=== PATIENT | female | born 2000 | race Hispanic/Latino ===

== ENCOUNTER 2020-03-03 13:42 | Observation (INO) | payer OTHER, SELFPAY ==
--- NOTE | 2020-03-03 13:42 | OBADM ---
This patient, Keerthi Preciado, admitted to the OB room OB Post 112 for observation. Patient/family oriented to hospital policies and general routines including ID bracelet, bed and alarms, visiting hours, pain management, procedures, bathroom and other care routines, personal items, smoking policy, room service/diet, and visiting hours. Patient/Family are encouraged to report perceived risks to care and to ask questions if they do not understand what they are told or what they should do.
[2020-03-03 15:00] VITALS: BP 119/71; PULSE 83; BMI 33.0
[2020-03-03 16:00] VITALS: TEMP 36.8
--- NOTE | 2020-03-24 13:46 | PM.OBTRLD ---
OB - Triage/Final Diagnosis Final Diagnosis (1) Amniotic fluid leaking: Code(s): O42.90 - Premature rupture of membranes, unspecified as to length of time between rupture and onset of labor, unspecified weeks of gestation Status: Acute
== END 2020-03-03 16:25 | disposition home or self-care (01) ==
PROVIDERS: Admitting Provider Obstetrics & Gynecology; Visit Provider Obstetrics & Gynecology
DX: O42.90 Premature rupture of membranes, unspecified as to length of time between rupture and onset of labor, unspecified weeks of gestation (principal); Z3A.00 Weeks of gestation of pregnancy not specified
CPT/HCPCS: G0378; G0379

== ENCOUNTER 2020-03-24 21:25 | Observation (INO) | payer OTHER, SELFPAY ==
[2020-03-24] VITALS (7 sets, daily range): BP systolic 116–136; BP diastolic 69–77; PULSE 68–80; TEMP 36.6
[2020-03-24 22:11] LABS: Add Urine Microscopic? YES; Appearance Urine Clear (Clear); Bacteria Urine Trace /hpf; Bilirubin Urine Negative (Negative); Blood Urine Negative (Negative); Color Urine Yellow (Yellow); Glucose Urine UA Negative (Negative); Ketones Urine Negative (Negative); Leukocyte Esterase Ur Negative LEU/UL (NEGATIVE); Mucus Urine Rare /lpf; Nitrate Urine Negative (Negative); Protein Urine 1+ mg/dL (Negative); RBC Urine 0-2 /hpf (0-2); Specific Grav Ur 1.027 (1.001-1.035); Squamous Epithelial Cell Urine Few /hpf (Few); Urobilinogen Urine Negative mg/dL (<2.0); WBC Urine 0-3 /hpf (0-3)
--- NOTE | 2020-03-25 02:02 | PC.NURSE ---
02/26/202139 Pt states she has abdominal cramping and back pain since last evening. Unsure if having contractions. Pt states her pain is present all of the time and rated as7. Pt appears comfortable on arrival. Denies urinary symptoms and has been having normal BM. Pt states she is having next Sunday /
[2020-03-25 02:08] VITALS: BMI 34.9
--- NOTE | 2020-03-25 02:08 | OBADM ---
This patient, Keerthi Preciado, admitted to the OB room OB Post 117 for observation. Patient/family oriented to hospital policies and general routines including ID bracelet, bed and alarms, visiting hours, pain management, procedures, bathroom and other care routines, personal items, smoking policy, room service/diet, and visiting hours. Patient/Family are encouraged to report perceived risks to care and to ask questions if they do not understand what they are told or what they should do.
--- NOTE | 2020-04-23 14:02 | P.PNOB_ITS ---
OB - Triage/Final Diagnosis Evaluation Laboratory results: Laboratory Tests 03/24/20 22:01 Urine Color Yellow Urine Appearance Clear Urine pH 6.0 Ur Specific [place] 1.027 Urine Protein 1+ H Urine Glucose (UA) Negative Urine Ketones Negative Ur Blood (Man) Negative Urine Nitrate Negative Urine Bilirubin Negative Urine Urobilinogen Negative Ur Leukocyte Esterase Negative Urine RBC 0-2 Urine WBC 0-3 Ur Squamous Epith Cells Few Urine Bacteria Trace Urine Mucus Rare Final Diagnosis (1) False labor: Code(s): O47.9 - False labor, unspecified Status: Acute
== END 2020-03-24 23:30 | disposition home or self-care (01) ==
PROVIDERS: Admitting Provider Obstetrics & Gynecology; Visit Provider Obstetrics & Gynecology
DX: O47.9 False labor, unspecified (principal); Z3A.00 Weeks of gestation of pregnancy not specified
CPT/HCPCS: 81001; 87086; G0378; G0379

== ENCOUNTER 2020-03-27 11:03 | Outpatient (CLI) | payer OTHER, SELFPAY ==
[2020-03-27 11:42] LABS: Hematocrit 28.1 % (37.0-47.0); Hemoglobin 8.3 g/dL (12.0-15.0); Mean Corpuscular HGB Conc 29.5 g/dl (32-36); Mean Corpuscular Hemoglobin 21.2 pg (26-34); Mean Corpuscular Volume 71.9 fl (80-100); Mean Platelet Volume 10.7 fl (7.4-10.4); Platelet Count Result 314 k/mm3 (150-375); Red Blood Count 3.91 M/mm3 (4.2-5.4); Red Cell Distribution Width 18.8 % (11.5-14.5); White Blood Count 8.7 K/mm3 (4.5-10.0)
[2020-03-29 06:52] LABS: Rapid Plasma Reagin Non-Reactive (NonReactive)
== END 2020-03-27 11:04 | disposition home or self-care (01) ==
LOC: ANHLAB 11:05
PROVIDERS: Visit Provider Obstetrics & Gynecology
DX: Z01.818 Encounter for other preprocedural examination (principal)
CPT/HCPCS: 36415; 85027; 86592; 86850; 86900; 86901

== ENCOUNTER 2020-03-29 05:30 | Inpatient (IN) | payer OTHER, SELFPAY ==
--- NOTE | 2020-03-28 10:03 | WPDANESEPP ---
Anes - Eval Pre Procedure Procedure: Operation Date: 03/29/20 07:30 Proposed Procedures p Repeat Section - Isma Guardado MD Date/Time: 03/28/20 10:03 Pre Op Diagnosis: Pre-admit, routine care, prev csection Patient Data Age: 20 Gender: F Height: Weight: Allergies Allergy/AdvReac Type Severity Reaction Status Date / Time almond Allergy Unknown Hives / Verified 05/25/18 13:27 Red Face Home Medications Medication Instructions Recorded Confirmed Type PNV cmb#95-ferrous fumarate-FA 1 tablet PO DAILY 03/04/20 03/24/20 History [] Patient hx anesthesia problems: none Family hx anesthesia problems: none PMFSH Past Medical History Medical History Depression Hypothyroid Iron deficiency anemia Surgical History Surgical History Hx of tonsillectomy Family History Family History Father Hypertension Mother Anemia Social History Social History Substance use: never Gender identity (if verbalized by the patient): Female Spiritual care concerns: No Exam Day of Procedure 03/28/20 10:03
[2020-03-29] VITALS (55 sets, daily range): BP systolic 101–136; BP diastolic 57–85; PULSE 54–78; RESP 12–18; TEMP 36.2–37.2; O2SAT 99–100; BMI 34.8
--- NOTE | 2020-03-29 05:30 | LDADM ---
This patient, Keerthi Preciado, was admitted to Labor/Delivery/Recovery 120 on 03/29/20 at 05:30. Plans for labor, pain management and were discussed with patient. Patient/family oriented to hospital policies and general routines including ID bracelet, bed and alarms, visiting hours, pain management, procedures, bathroom and other care routines, personal items, smoking policy, room service/diet and guest tray routines, security routines, and visiting hours. Patient/Family are encouraged to report perceived risks to care and to ask questions if they do not understand what they are told or what they should do. See OBIX for further documentation.
[2020-03-29] MEDS: LACTATED RINGERS 1,000 ML 125 ML IV CONT ×2 (06:26→06:55)
--- NOTE | 2020-03-29 06:49 | WPDANESEPPF ---
Anes - Initial Pre Proc Eval Procedure: Operation Date: 03/29/20 07:30 Proposed Procedures p Repeat Section - Isma Guardado MD Date/Time: 03/29/20 06:49 Surgeon: Isma Guardado MD Pre Op Diagnosis: C/S Patient Data Age: 20 Gender: F Height: 5 ft 9 in Weight: 107 kg Last Vital Signs Pulse 78 03/29/20 06:15 BP 130/85 03/29/20 06:15 Allergies Allergy/AdvReac Type Severity Reaction Status Date / Time almond Allergy Unknown Hives / Verified 05/25/18 13:27 Red Face Home Medications Medication Instructions Recorded Confirmed Type PNV cmb#95-ferrous fumarate-FA 1 tablet PO DAILY 03/04/20 03/24/20 History [] Patient hx anesthesia problems: none Family hx anesthesia problems: none PMFSH Past Medical History Medical History Depression Hypothyroid Iron deficiency anemia Surgical History Surgical History (Updated 03/29/20 @ 06:49 by Yinka Gallo MD) History of section Hx of tonsillectomy Family History Family History Father Hypertension Mother Anemia Social History Social History Smoking status: Never smoker Second hand tobacco smoke exposure: No Substance use: never Gender identity (if verbalized by the patient): Female Spiritual care concerns: No Anes - Eval Final PreProcedure Day of Procedure 03/29/20 06:49 Patient weight: obese Heart: regular rate and rhythm Lungs: clear to auscultation Airway: Mallampati scale class II Neurological: alert and oriented Last oral intake: >/= 8 hours ASA classification: II Emergent: no Anesthetic plan: proceed Anesthesia type and monitoring: regional spinal and standard monitoring Informed Consent: The patient's anesthetic plan and its attendant risks and benefits were discussed with the patient/family/POA. Questions were solicited and answers provided to the satisfaction of the patient/family/POA.
--- NOTE | 2020-03-29 07:20 | PM.IMHP ---
H&P: HPI History of Present Illness Date/Time: 03/29/20 07:20 Chief complaint: C/S Narrative: Keerthi Preciado is a 20 year old female Multiparous female at 39 weeks gestation who presents for repeat delivery. She has a previous delivery. She has no complaints. She denies any contractions, loss of vision, vaginal bleeding. She denies any chest pain, shortness of breath. She denies any nausea, vomiting, fever, chills. Review of Systems Constitutional: Constitutional: Reports no additional constitutional complaints, Denies fatigue, Denies headache(s), Denies lethargy and Denies weakness Eyes: Eyes: Reports no additional eye complaints, Denies blurry vision and Denies photophobia ENT: Reports as per HPI, Denies headache(s) and Denies neck pain Cardiovascular: Cardiovascular: Denies chest pain, Denies diaphoresis, Denies leg edema, Denies palpitations and Denies dyspnea Respiratory: Respiratory: Denies hemoptysis, Denies dyspnea and Denies wheezing Gastrointestinal: Gastrointestinal: Denies abdominal pain, Denies melena, Denies bloating, Denies hematochezia, Denies nausea and Denies vomiting Genitourinary: Genitourinary: Reports no additional female genitourinary complaints Musculoskeletal: Musculoskeletal: Denies joint swelling, Denies neck pain, Denies numbness and Denies stiffness Neurologic: Denies Abnormal speech present, Denies confusion, Denies headache(s), Denies numbness and Denies weakness Psychiatric: Psychiatric: Denies anxiety, Denies confusion, Denies depression, Denies homicidal ideation and Denies suicidal ideation Endocrine: Endocrine: Denies fatigue and Denies palpitations Allergic/Immunologic: Allergic/Immunologic: Denies wheezing PMFSH Past Medical History Medical History (Updated 03/29/20 @ 07:22 by Isma Guardado MD) Depression Hypothyroid Iron deficiency anemia Surgical History Surgical History (Updated 03/29/20 @ 07:22 by Isma Guardado MD) History of section Hx of tonsillectomy Family History Family History Father Hypertension Mother Anemia Social History Social History Smoking status: Never smoker Second hand tobacco smoke exposure: No Substance use: never Gender identity (if verbalized by the patient): Female Spiritual care concerns: No Meds Home Medications and Allergies Home Medications Medication Instructions Recorded Confirmed Type PNV cmb#95-ferrous fumarate-FA 1 tablet PO DAILY 03/04/20 03/24/20 History [] Allergies Allergy/AdvReac Type Severity Reaction Status Date / Time almond Allergy Unknown Hives / Verified 05/25/18 13:27 Red Face Vital Signs Vital Signs - 24 hr 03/29/20 06:12 03/29/20 06:15 Pulse Rate 70 78 Blood Pressure 127/73 130/85 Exam Const: General: healthy appearing, comfortable and no acute distress; No confusion Orientation/consciousness: No confusion Eyes: Direct Ophthalmoscopy: No photophobia Resp: Auscultation: clear to auscultation bilaterally, no rales, no rhonchi and no wheezes Cardio: Rate: regular rate Heart sounds: no click, no murmurs and no rubs GI: Inspection: non-distended GI Palp: No abdominal tenderness Auscultation: normal bowel sounds Neuro: General: No confusion Speech: No Abnormal speech present Extrem: General: normal to inspection, no pedal edema and no calf tenderness Assessment and Plan Assessment and plan (1) Previous delivery, delivered: Code(s): O34.219 - Maternal care for unspecified type scar from previous delivery Status: Acute (2) Term : Code(s): Z34.90 - Encounter for supervision of normal , unspecified, unspecified trimester Status: Acute Assessment and Plan: this patient is a 20-year-old multiparous female with a previous delivery at
[2020-03-29] MEDS: ceFAZolin 2 GM/D5W 50 ML 2 GM/50 ML BAG IVPB (07:52)
--- NOTE | 2020-03-29 08:54 | PM.PROC ---
Procedure Note - Detailed Date of procedure: 03/29/20 Pre-op diagnosis: C/S Term gestation, PRevious LTCS Post-op diagnosis: same Procedure performed: low-transverse delivery Description of procedure: The patient was taken the operating room. She was prepped and draped in the dorsal supine position with leftward tilt after induction of spinal anesthetic. When anesthesia was found to be adequate a low-transverse skin incision was made and carried down to the level the fascia with the knife. The fascial incision was made at the midline with a scalpel. The fascial incision was extended laterally with Milan scissors. The fascia was tented upward superior and inferior with Paul clamps. The rectus muscles were dissected off bluntly. The rectus muscles at the midline. The preperitoneal fat was dissected bluntly at the superior aspect of the separate the rectus muscles. The peritoneal cavity was entered bluntly in the same area. The peritoneal incision was extended superior and inferior with good visualization of bladder. Bladder blade was inserted. A low-transverse incision was made on the uterus with the scalpel. It was carried down the level of the amniotic cavity with a knife. The amniotic cavity bluntly. The uterine incision was made laterally with blunt traction. The was delivered. The cord was clamped and cut. The was handed off to waiting pediatric staff. Cord bloods were obtained. The placenta was removed manually. The uterus was exteriorized. Uterus cleared of all clots and debris. Uterus closed in 0 Vicryl in a running locked fashion. An imbricating layer of 0 Vicryl was also placed on the to bolster the closure. The uterus was returned to the abdomen. The gutters were cleared of all clots and debris. The fascia was closed 0 Vicryl in a running fashion. Subcutaneous tissue was irrigated and bleeding areas were cauterized. The skin was closed with subcuticular 4O monocryl. The incision was covered with derma leach. The patient tolerated the procedure well. She was taken recovery room stable condition. Sponge, lap, needle counts were correct x2. Anesthesia: spinal Surgeon: Isma Guardado MD Estimated blood loss (mL): 240 Drains: No Packing: No Pathology: none sent Complications: No immediate complications Condition: stable Disposition: floor Findings: Normal maternal anatomy. Average size infant with normal Apgars.
[2020-03-29] MEDS: OXYTOCIN 30 UNITS/NS 500 ML 30 UNITS/500 ML BAG 125 UNITS IV CONT (09:30)
--- NOTE | 2020-03-29 12:40 | PC.NURSE ---
Consulted with patient, mother reports this to be 2nd child to breastfeed, reporting infant has been easily awoken to feed without issue. Reviewed infant feeding cues, frequencies, duration of feedings, feeding elimination flow sheet, and signs of adequate intake. Mother states it is time to feed, infant is sleepy at this time. Demonstrated stimulation techniques to wake for feeding. Assisted with infant to breast. Reviewed positioning/alignment in cross cradle, holding breast in U hold and guided asymmetrical latch on. was able to latch correctly. Infant nursed eagerly, with steady draws and frequent swallowing noted. Reviewed signs of a correct latch, effective nursing and suck swallow ratio. Infant was able to maintain latch without discomfort to mother. Nipple care reviewed. suggested to stimulate infant while feeding to keep infant awake and nursing effectively for increased intake and to assist with maintaining deep latch. Demonstrated how to adjust latch more deeply while feeding. Instructed mother to call out for RN assistance if she is unable to latch for feeding or she has discomfort with nursing. Instructed feeding should be initiated three hours from start of last feeding or if feeding cues are noted before. Mother voiced understanding of information shared
[2020-03-29] MEDS: DEXTROSE 5%/0.45% SOD CHL 1,000 ML 125 ML IV CONT (14:30)
[2020-03-29] MEDS: KCL 20 MEQ/D5/0.45% SOD CHL 1,000 ML 125 ML IV CONT (22:00)
[2020-03-30] MEDS: HYDROcodone/acetaminophen (*CRX) 5-325 MG TABLET 1 TAB PO ×3 (00:03→23:15)
[2020-03-30] MEDS: IBUPROFEN 600 MG TABLET PO ×4 (00:04→23:15)
[2020-03-30 03:30] VITALS: BP 109/59; PULSE 72; RESP 16; TEMP 36.8
[2020-03-30 04:38] LABS: Basophils Percent Auto 0.3 % (0.2-1.2); Eosinophils Absolute Auto 0.1 K/mm3 (0-0.3); Eosinophils Percent Auto 0.8 % (0-4.4); Immature Granulocyte Absolute 0.06 K/mm3 (0.00-0.031); Immature Granulocyte Percent A 0.6 % (0-0.5); Lymphocytes Absolute Auto 2.56 K/mm3 (0.9-3.2); Lymphocytes Percent Auto 25.2 % (18.3-44.2); Mean Corpuscular Hemoglobin 20.6 pg (26-34); Mean Corpuscular Volume 71.1 fl (80-100); Mean Platelet Volume 10.3 fl (7.4-10.4); Monocytes Absolute Auto 0.7 K/mm3 (0.1-0.6); Monocytes Percent Auto 7.3 % (2.6-8.5); Neutrophils Absolute Auto 6.7 K/mm3 (1.3-6.7); Neutrophils Percent Auto 65.8 % (45.5-73.1); Platelet Count Result 211 k/mm3 (150-375); Red Blood Count 2.91 M/mm3 (4.2-5.4); Red Cell Distribution Width 18.6 % (11.5-14.5); White Blood Count 10.2 K/mm3 (4.5-10.0)
[2020-03-30 05:07] LABS: Hematocrit 20.7 % (37.0-47.0)
[2020-03-30 05:11] LABS: Platelet Estimate Adequate (Adequate)
[2020-03-30 05:12] LABS: Hypochromasia 1+ (NORMAL); Large Platelets Present
--- NOTE | 2020-03-30 07:19 | WPDANLDPN2 ---
Anes-Prog Note L&D Date/Time: 03/30/20 07:19 Comfortable throughout: section Neuraxial method: spinal Epidural/Spinal procedure site: clean & non-tender Neuro status: Neuro function grossly intact. Cardiovascular status: normal Respiratory status: normal Airway patency: baseline Mental status: baseline Post-Op hydration status: normal Vital Signs: Last Vital Signs Temp 36.8 C 03/30/20 03:30 Pulse 72 03/30/20 03:30 Resp 16 03/30/20 03:30 BP 109/59 L 03/30/20 03:30 Pulse Ox 100 03/29/20 23:55 Pain score (VAS): 07/04 I/O: Intake & Output 03/29/20 03/29/20 03/30/20 15:59 23:59 07:59 Intake Total 690 1600 Output Total 758 1600 8540 Balance -86 -2699 -0879 Post-procedural complaints: none Patient feedback: Patient satisfied with anesthetic care.
--- NOTE | 2020-03-30 07:19 | WPDANLDNPN2 ---
Anes-Prog Note L&D-Neuraxial Date/Time: 03/30/20 07:19 Neuraxial medications: intrathecal PF morphine Opiod-related complaints: none Patient feedback: Patient satisfied with post-operative pain management.
--- NOTE | 2020-03-30 07:33 | P.PNOB_ITS ---
OB - PN: Subj Subjective Date/time seen: 03/30/20 07:33 day 1 s/p rpt section Patient comments: no complaints baby status: doing well OB - PN: Obj Data Labs CBC & Chem 7: 03/30/20 04:29 Labs: Laboratory Results - last 24 hr 03/30/20 04:29 WBC 10.2 H RBC 2.91 L Hgb 6.0 L* Hct 20.7 L* MCV 71.1 L MCH 20.6 L MCHC 29.0 L RDW 18.6 H Plt Count 211 MPV 10.3 Immature Gran % (Auto) 0.6 H Neut % (Auto) 65.8 Lymph % (Auto) 25.2 [place] % (Auto) 7.3 Eos % (Auto) 0.8 Baso % (Auto) 0.3 Lymph # (Auto) 2.56 [place] # (Auto) 0.7 H Eos # (Auto) 0.1 Baso # (Auto) 0.0 Abs Immat Gran (auto) 0.06 H Absolute Neuts (auto) 6.7 Absolute Nucleated RBC 0.0 Nucleated RBC % 0.0 Platelet Estimate Adequate Large Platelets Present Hypochromasia 1+ OB - PN A/P Plan day: 1 Plan: routine care Comments: dr. raya notified of cbc results Time Spent With Patient Time: Total time spent is greater than 50% in coordination of care (as documented) at patient's floor/unit and/or counseling patient: Review of Systems Review of Systems: All systems reviewed & are unremarkable except as noted in HPI and below Exam Const: General: comfortable Resp: Effort & Inspection: normal respiratory effort Psych: Appearance: grossly normal Affect: normal affect Attitude: cooperative Judgement: Good judgement present (Psych)
--- NOTE | 2020-03-30 08:30 | PC.NURSE ---
Consult with pt., mother reports she began bottle feeding, stating was not satisfied after and was concerned was not getting enough. Mother struggled with milk supply with first child. Discussed adequate signs of breastmilk intake, infant WNL for all. Suggested if mother wishes to continue to breastfeed, she should put to breast first and then supplement. Mother states she may want to pump and bottle feed.
[2020-03-30] MEDS: MULTIVIT/MIN/PREN/FOL AC/IRON TABLET 1 TAB PO (08:39)
[2020-03-30] MEDS: DOCUSATE SODIUM 100 MG CAPSULE PO ×2 (08:39→16:06)
[2020-03-30] MEDS: POLYSACCHARIDE IRON COMPLEX 150 MG CAPSULE PO ×2 (08:39→16:06)
[2020-03-30 08:40] VITALS: BP 113/66; PULSE 81; RESP 16; TEMP 37.1
[2020-03-30] MEDS: ONDANSETRON INJ 4 MG/2 ML VIAL IV PUSH (09:24)
--- NOTE | 2020-03-30 11:45 | PC.NURSE ---
Breast pump provided due to mother wishes to pump and bottle feed. Instructions given on breast pump care and usage, pumping schedule, nipple care, and collection and storage of breast milk. Encouraged [id number], breast massage and manual expression to stimulate supply. Pumping log provided and reviewed. Assessed patient for correct flange size, placement and draw. Patient verbalizes and demonstrates understanding of instructions.
[2020-03-30 19:00] VITALS: BP 122/71; PULSE 93; RESP 16; TEMP 37.1
[2020-03-31] VITALS (13 sets, daily range): BP systolic 118–133; BP diastolic 65–84; PULSE 77–102; RESP 14–18; TEMP 36.7–37; O2SAT 99–100
[2020-03-31 06:12] LABS: Hematocrit 19.9 % (37.0-47.0); Hemoglobin 5.8 g/dL (12.0-15.0)
[2020-03-31] MEDS: IBUPROFEN 600 MG TABLET PO ×2 (07:05→15:07)
[2020-03-31] MEDS: POLYSACCHARIDE IRON COMPLEX 150 MG CAPSULE PO (07:06)
[2020-03-31] MEDS: DOCUSATE SODIUM 100 MG CAPSULE PO (07:07)
[2020-03-31] MEDS: MULTIVIT/MIN/PREN/FOL AC/IRON TABLET 1 TAB PO (07:07)
--- NOTE | 2020-03-31 08:02 | PM.OBPNVD ---
OB - PN: Subj Subjective Date/time seen: 03/31/20 08:02 Patient comments: no complaints, pain well controlled, incisional pain, tolerating diet and flatus present OB - PN: Obj Data Labs CBC & Chem 7: 03/31/20 04:53 Labs: Laboratory Results - last 24 hr 03/31/20 04:53 Hgb 5.8 L* Hct 19.9 L* OB - PN A/P Plan day: 2 Plan: routine care Comments: POD#2 LTCS - severely anemic. to transfx 2 units. to d/c later Time Spent With Patient Time: Total time spent is greater than 50% in coordination of care (as documented) at patient's floor/unit and/or counseling patient: Exam Const: General: comfortable, no acute distress and alert Resp: Effort & Inspection: normal respiratory effort Auscultation: no crackles, no rales and no rhonchi Cardio: Rate: regular rate Heart sounds: no click, no murmurs and no rubs GI: Inspection: non-distended GI Palp: No Tenderness to palpation present (GI) Auscultation: normal bowel sounds Other: Incision - CDI Extrem: General: normal to inspection, no pedal edema and no calf tenderness
--- NOTE | 2020-03-31 08:04 | PM.OBDSVD ---
DS: Admitting Diagnosis Admitting Diagnosis Admitting Diagnosis: C/S DS: Discharge Diagnosis Discharge Diagnosis (1) Term : Code(s): Z34.90 - Encounter for supervision of normal , unspecified, unspecified trimester Status: Acute (2) Previous delivery, delivered: Code(s): O34.219 - Maternal care for unspecified type scar from previous delivery Status: Acute (3) Anemia: Code(s): D64.9 - Anemia, unspecified Status: Acute OB - DS: Summary OB Procedures : None OB Procedures Intrapartum: OB Procedures: : Transfusion Peripartum Data Infant Delivery Method: Section Procedures: Procedures Operation Date: 03/29/20 07:30 Actual Procedures Side Surgeon p Repeat Section Not Applicable Isma Guardado MD Status at Discharge Functional status at discharge: independent ambulation Time Spent with Patient Time attestation: Total time spent providing and/or coordinating discharge services: DS: Data Data Completed and Pending Labs on day of discharge: Labs from last 24 hours 03/31/20 04:53 Hgb 5.8 L* Hct 19.9 L* Discharge Plan Discharge Discharging Clinician: Isma Guardado Patient Disposition: Home, Self-Care Activity: pelvic rest Diet: regular Patient Instructions: Antibiotic Form Stand Alone Forms: General Discharge Information Follow-up/Referrals: Isma Guardado MD [Physician] - Discharge Medications: Continued PNV cmb#95-ferrous fumarate-FA [] 28 mg iron- 800 mcg Tablet 1 tablet PO DAILY RF: 0 Date of admission: 03/29/20 05:30 Primary Care Provider: PHYSICIAN,SUPERVISOR [employer] Admitting Provider: Isma Guardado Attending physician on admission: Isma Guardado
--- NOTE | 2020-03-31 08:06 | PM.OBDSVD ---
DS: Admitting Diagnosis Admitting Diagnosis Admitting Diagnosis: C/S OB - DS: Summary OB Procedures : None OB Procedures Intrapartum: OB Procedures: : Transfusion Peripartum Data Procedures: Procedures Operation Date: 03/29/20 07:30 Actual Procedures Side Surgeon p Repeat Section Not Applicable Isma Guardado MD Time Spent with Patient Time attestation: Total time spent providing and/or coordinating discharge services: DS: Data Data Completed and Pending Labs on day of discharge: Labs from last 24 hours 03/31/20 04:53 Hgb 5.8 L* Hct 19.9 L* Discharge Plan Discharge Discharging Clinician: Isma Guardado Patient Disposition: Home, Self-Care Activity: pelvic rest Diet: regular Patient Instructions: Antibiotic Form Stand Alone Forms: General Discharge Information Follow-up/Referrals: Isma Guardado MD [Physician] - Discharge Medications: New hydrocodone-acetaminophen 5-325 mg tablet 1 - 2 tablet PO Q4H PRN (Reason: pain) Qty: 25 RF: 0 Continued PNV cmb#95-ferrous fumarate-FA [] 28 mg iron- 800 mcg Tablet 1 tablet PO DAILY RF: 0 Date of admission: 03/29/20 05:30 Primary Care Provider: PHYSICIAN,RESIDENTIAL DIRECT SUPPORT PROFESSIONAL Admitting Provider: Isma Guardado Attending physician on admission: Isma Guardado
--- NOTE | 2020-03-31 08:45 | PC.NURSE ---
Mother states she has chosen to formula feed.
--- NOTE | 2020-03-31 10:47 | PC.NURSE ---
Patient viewed the discharge video Mother & Baby Care, The First Two Weeks . Patient was given the opportunity and encouraged to ask questions. Patient verbalized understanding of information shared and has been given the mother/baby guide for home reference.
[2020-03-31] MEDS: SIMETHICONE 80 MG TAB.CHEW PO (15:07)
[2020-03-31] MEDS: HYDROcodone/acetaminophen (*CRX) 5-325 MG TABLET 1 TAB PO (15:08)
[2020-04-01 09:26] VITALS: BP 138/71; PULSE 86; RESP 20; TEMP 37.1; O2SAT 100
--- NOTE | 2020-04-23 07:41 | P.PNOB_ITS ---
OB - Triage/Final Diagnosis Evaluation Laboratory results: Laboratory Tests 03/30/20 03/31/20 03/31/20 04:29 04:53 08:14 WBC 10.2 H RBC 2.91 L Hgb 6.0 L* 5.8 L* Hct 20.7 L* 19.9 L* MCV 71.1 L MCH 20.6 L MCHC 29.0 L RDW 18.6 H Plt Count 211 MPV 10.3 Immature Gran % (Auto) 0.6 H Neut % (Auto) 65.8 Lymph % (Auto) 25.2 [place] % (Auto) 7.3 Eos % (Auto) 0.8 Baso % (Auto) 0.3 Lymph # (Auto) 2.56 [place] # (Auto) 0.7 H Eos # (Auto) 0.1 Baso # (Auto) 0.0 Abs Immat Gran (auto) 0.06 H Absolute Neuts (auto) 6.7 Absolute Nucleated RBC 0.0 Nucleated RBC % 0.0 Platelet Estimate Adequate Large Platelets Present Hypochromasia 1+ Blood Type A Positive Antibody Screen Negative Crossmatch See Detail Final Diagnosis (1) False labor: Code(s): O47.9 - False labor, unspecified Status: Acute
== END 2020-03-31 16:45 | disposition home or self-care (01) | DRG 540 ==
LOC: ANHLDR 05:35 → ANHOB2 11:23
PROVIDERS: Advanced Practice Midwife; Admitting Provider Obstetrics & Gynecology; Visit Provider Obstetrics & Gynecology
PROC: 10D00Z1 Extraction of Products of Conception, Low, Open Approach (ICD-10-PCS; CPT 59514; principal; 2020-03-29 07:30)
DX: O34.211 Maternal care for low transverse scar from previous cesarean delivery (principal); Z37.0 Single live birth; Z3A.39 39 weeks gestation of pregnancy; Z23 Encounter for immunization; O99.284 Endocrine, nutritional and metabolic diseases complicating childbirth; E03.9 Hypothyroidism, unspecified; O99.02 Anemia complicating childbirth; D50.9 Iron deficiency anemia, unspecified; O99.344 Other mental disorders complicating childbirth; F32.9 Major depressive disorder, single episode, unspecified; O99.214 Obesity complicating childbirth; E66.9 Obesity, unspecified
CPT/HCPCS: 36415; 36430; 85014; 85018; 85025; 86850; 86900; 86901; 86923; 90471; 90653; A9270; G0008; J0131; J0690; J1100; J2274; J2370; J2405; J2590; J3480; J7030; J7120; P9016

== ENCOUNTER 2021-05-11 16:36 | Emergency (ER) | payer OTHER, SELFPAY ==
[2021-05-11 16:58] VITALS: BP 125/71; PULSE 77; RESP 16; TEMP 36.8; O2SAT 99
--- NOTE | 2021-05-11 17:37 | ED.EYEPROB ---
HPI - Eye Problem General Chief complaint: Eye Problems Stated complaint: left eye pain/swollen Time Seen by Provider: 05/11/21 17:37 Source: patient Mode of arrival: ambulatory Limitations: no limitations History of Present Illness HPI Narrative: Keerthi Preciado is a 21 yo female with no PMH who comes here today with left eye swelling and pain that is been ongoing for the last 2 weeks. Prior her left lower lid was irritated and painful and now her upper lid is swollen. Does not wear contact lenses. Denies any injury to eye. States had discharge and eye difficulty open this morning when she awoke Related Data Home Medications Medication Instructions Recorded Confirmed PNV cmb#95-ferrous fumarate-FA 1 tablet PO DAILY 03/04/20 05/11/21 [] Allergies Allergy/AdvReac Type Severity Reaction Status Date / Time almond Allergy Unknown Hives / Verified 05/11/21 17:38 Red Face Review of Systems Review of Systems: CONSTITUTIONAL: Denies fever, chills, sweats. EYES: Denies visual changes, redness, left discharge. ENT: Denies rhinorrhea, congestion, sore throat, otalgia. CARDIOVASCULAR: Denies chest pain, palpitations, edema. RESPIRATORY: Denies dyspnea, wheezing, cough GASTROINTESTINAL: Denies abdominal pain, nausea, vomiting, diarrhea. GENITOURINARY: Denies dysuria, hematuria, abnormal discharge SKIN: Denies rash or itching. NEUROLOGIC: Denies numbness, or focal weakness. PSYCHIATRIC: Denies anxiety or depression. [facility] Past Medical History Medical History Depression Hypothyroid Iron deficiency anemia Surgical History Surgical History History of section Hx of tonsillectomy Family History Family History Father Hypertension Mother Anemia Social History Social History Smoking status: Never smoker Second hand tobacco smoke exposure: No Substance use: never Gender identity (if verbalized by the patient): Female Spiritual care concerns: No Comments At time of signature, I agree with nursing past medical, surgical, social and family history. There is no relevant family history pertinent to the presenting complaint. Exam Narrative: GENERAL: This is a well-nourished, well-developed patient, in mild distress. HEAD: normocephalic, atraumatic. EYES: Sclera clear/white. Vision is grossly intact. Left eyelid swollen, tender EARS: External ears normal, auditory canals mild erythema and without drainage, TMs normal without perforation. Hearing grossly intact. NOSE: External nose normal without nasal discharge, nares without redness, no rhinorrhea. THROAT: Mucous membranes moist, NECK: Neck supple, non-tender CARDIOVASCULAR: Regular rate and rhythm without murmurs, gallops, or rubs. RESPIRATORY: Clear to auscultation. Breath sounds equal bilaterally. No wheezes, rales, or rhonchi. GASTROINTESTINAL: Abdomen soft, SKIN: warm, intact with no suspicious lesions or rash, good texture and turgor. NEURO: awake, alert, and oriented to person, place and time. There were no obvious focal neurologic abnormalities. Steady gait EXTREMITIES: Normal range of motion. BACK: Nontender without deformity Course Course Emergency Course: Patient here with left eyelid swelling that has been going on for the last 2 weeks Started on tobramycin eyedrops Discussed infection control Vital Signs Vital signs: Vital Signs Temperature 98.3 F 05/11/21 16:58 Pulse Rate 77 05/11/21 16:58 Respiratory Rate 16 05/11/21 16:58 Blood Pressure 125/71 05/11/21 16:58 Pulse Oximetry 99 05/11/21 16:58 Temperature 98.3 F 05/11/21 16:58 Pulse Rate 77 05/11/21 16:58 Respiratory Rate 16 05/11/21 16:58 Blood Pressure 125/71 05/11/21 16:58 Pulse Oximetry 99 05/11/21
== END 2021-05-11 17:45 | disposition home or self-care (01) ==
PROVIDERS: Emergency Provider Nurse Practitioner
DX: H10.9 Unspecified conjunctivitis (principal); E03.9 Hypothyroidism, unspecified; D50.9 Iron deficiency anemia, unspecified
CPT/HCPCS: 99213; G0463

== ENCOUNTER 2021-06-22 16:19 | Emergency (ER) | payer OTHER, SELFPAY ==
[2021-06-22 16:26] VITALS: BP 140/78; PULSE 118; RESP 16; TEMP 38.7; O2SAT 99
--- NOTE | 2021-06-22 17:21 | ED.URI ---
HPI - URI/Sore Throat General Chief Complaint: Upper Respiratory Infection Stated Complaint: cough/fever/body aches Time Seen by Provider: 06/22/21 17:15 Source: patient and RN notes reviewed Mode of arrival: ambulatory Limitations: no limitations History of Present Illness HPI Narrative: Patient presents today complaining of a subjective fever, body aches, headache, and 3 episodes of vomiting since yesterday. Denies cough, sore throat. Mother was diagnosed with COVID-19 today. Patient has been able to drink fluids but not food. She has taken Robitussin without relief. MD elicited complaint: fever Related Data Home Medications Medication Instructions Recorded Confirmed amoxicillin-pot clavulanate 1 tablet PO DAILY 06/22/21 06/22/21 Allergies Allergy/AdvReac Type Severity Reaction Status Date / Time almond Allergy Unknown Hives / Verified 06/22/21 17:01 Red Face Review of Systems Review of Systems: CONSTITUTIONAL: Denies chills, or sweats.+ Fever, body aches EYES: Denies visual changes, redness, or discharge. ENT: Denies rhinorrhea, congestion, sore throat, or otalgia. CARDIOVASCULAR: Denies chest pain, palpitations, or edema. RESPIRATORY: Denies cough or dyspnea. GASTROINTESTINAL: Denies abdominal pain, nausea, or diarrhea.+ Nausea and vomiting GENITOURINARY: Denies dysuria or hematuria. SKIN: Denies rash, itching, or wounds. MUSCULOSKELETAL: Denies back pain, joint pain, or myalgia. NEUROLOGIC: Denies numbness, tingling, or weakness.+ Headache PSYCH: Denies depression or anxiety. [facility] Past Medical History Medical History Depression Hypothyroid Iron deficiency anemia Surgical History Surgical History History of section Hx of tonsillectomy Family History Family History Father Hypertension Mother Anemia Social History Social History Smoking status: Never smoker Second hand tobacco smoke exposure: No Substance use: never Gender identity (if verbalized by the patient): Female Spiritual care concerns: No Comments At time of signature, I have reviewed and agree with nursing past medical, surgical, social and family history unless otherwise noted. Please see nursing chart for further information. There is no relevant family history pertinent to the presenting complaint Exam Narrative: GENERAL: Mildly ill-appearing, well-nourished, and in no acute distress. HEAD: Normocephalic, atraumatic. EYES: EOMI. No redness or drainage. Conjunctivae normal. ENT: Mucous membranes pink and moist. Nares mildly congested. No rhinorrhea. TMs normal bilaterally. Throat normal. Uvula midline. NECK: Normal AROM. Supple. No lymphadenopathy. CHEST: No respiratory distress. Clear to auscultation. HEART: Regular rate and rhythm. No murmur appreciated. Normal peripheral pulses. EXTREMITIES: Normal range of motion. No edema. SKIN: Warm, dry, no rash. Capillary refill normal. Normal skin turgor. NEURO: No focal deficits. Alert and oriented x3. Gait steady. PSYCH: Normal affect. No signs of depression or anxiety. Course Vital Signs Vital signs: Vital Signs Temperature 101.7 F H 06/22/21 16:26 Pulse Rate 118 H 06/22/21 16:26 Respiratory Rate 16 06/22/21 16:26 Blood Pressure 140/78 06/22/21 16:26 Pulse Oximetry 99 06/22/21 16:26 Temperature 101.7 F H 06/22/21 16:26 Pulse Rate 118 H 06/22/21 16:26 Respiratory Rate 16 06/22/21 16:26 Blood Pressure 140/78 06/22/21 16:26 Pulse Oximetry 99 06/22/21 16:26 Reviewed. Pt has been instructed to follow up with her PCP regarding her elevated blood pressure today. MDM - URI/Sore Throat Differential Diagnosis Differential diagnosis: Likely upper respiratory infection, viral
== END 2021-06-22 17:31 | disposition home or self-care (01) ==
PROVIDERS: Emergency Provider Nurse Practitioner
DX: U07.1 COVID-19 (principal); F32.9 Major depressive disorder, single episode, unspecified; E03.9 Hypothyroidism, unspecified; D50.9 Iron deficiency anemia, unspecified
CPT/HCPCS: 87426; 99213; C9803; G0463

== ENCOUNTER 2023-12-07 15:34 | Emergency (ER) | payer SELFPAY ==
[2023-12-07 15:52] VITALS: BP 141/84; PULSE 86; RESP 16; TEMP 39.4; O2SAT 98
--- NOTE | 2023-12-07 16:09 | ED.URI ---
HPI - URI/Sore Throat General Chief Complaint: Upper Respiratory Infection Stated Complaint: fever,FOREMAN,sore throat Time Seen by Provider: 12/07/23 16:04 Source: patient and RN notes reviewed Mode of arrival: ambulatory Limitations: no limitations History of Present Illness HPI Narrative: Patient presents today complaining of subjective fever, cough, congestion, body aches, chills. Symptoms began yesterday she has tried DayQuil, NyQuil, and Advil without much relief. Denies known sick contacts. Related Data Allergies Allergy/AdvReac Type Severity Reaction Status Date / Time almond Allergy Unknown Hives / Verified 12/07/23 15:43 Red Face Review of Systems Review of Systems: CONSTITUTIONAL: + body aches, fever, chills EYES: Denies visual changes, redness, or discharge. ENT: Denies rhinorrhea, sore throat, or otalgia.+ congestion CARDIOVASCULAR: Denies chest pain, palpitations, or edema. RESPIRATORY: Denies dyspnea.+ cough GASTROINTESTINAL: Denies abdominal pain, nausea, vomiting, or diarrhea. GENITOURINARY: Denies dysuria or hematuria. SKIN: Denies rash, itching, or wounds. MUSCULOSKELETAL: Denies back pain, joint pain, or myalgia. NEUROLOGIC: Denies headache, numbness, tingling, or weakness. PSYCH: Denies depression or anxiety. [facility] Past Medical History Medical History Depression Hypothyroid Iron deficiency anemia Surgical History Surgical History History of section Hx of tonsillectomy Family History Family History Father Hypertension Mother Anemia Social History Social History Smoking status: Never smoker Second hand tobacco smoke exposure: No Substance use: never Gender identity (if verbalized by the patient): Female Spiritual care concerns: No Comments At time of signature, I have reviewed and agree with nursing past medical, surgical, social and family history unless otherwise noted. Please see nursing chart for further information. There is no relevant family history pertinent to the presenting complaint Exam Narrative: GENERAL: Ill-appearing, well-nourished, and in no acute distress. Diaphoretic HEAD: Normocephalic, atraumatic. EYES: EOMI. No redness or drainage. Conjunctivae normal. ENT: Mucous membranes pink and moist. Nares clear. No rhinorrhea. TMs normal bilaterally. Throat normal. Uvula midline. NECK: Normal AROM. Supple. No lymphadenopathy. CHEST: No respiratory distress. Clear to auscultation. HEART: Regular rate and rhythm. No murmur appreciated. EXTREMITIES: Normal range of motion. No edema. SKIN: Warm, dry, no rash. Capillary refill normal. Normal skin turgor. NEURO: No focal deficits. Alert and oriented x3. Gait steady. PSYCH: Normal affect. No signs of depression or anxiety. Course Course Level of Care: Express Care Visit Vital Signs Vital signs: Vital Signs Temperature 103 F H 12/07/23 15:52 Pulse Rate 86 12/07/23 15:52 Respiratory Rate 16 12/07/23 15:52 Blood Pressure 141/84 H 12/07/23 15:52 Pulse Oximetry 98 12/07/23 15:52 Oxygen Delivery Room Air 12/07/23 15:52 Temperature 103 F H 12/07/23 15:52 Pulse Rate 86 12/07/23 15:52 Respiratory Rate 16 12/07/23 15:52 Blood Pressure 141/84 H 12/07/23 15:52 Pulse Oximetry 98 12/07/23 15:52 Oxygen Delivery Room Air 12/07/23 15:52 Reviewed MDM - URI/Sore Throat MDM Narrative Medical decision making narrative: Influenza a positive. COVID and strep negative. Strep culture pending. Will treat patient with Tamiflu and Zofran. Anticipatory guidance given. Differential Diagnosis Differential diagnosis: Likely upper respiratory infection, viral infection, influenza, pharyngitis and other (Strep throat, [place]
== END 2023-12-07 16:20 | disposition home or self-care (01) ==
PROVIDERS: Emergency Provider Nurse Practitioner
DX: J10.1 Influenza due to other identified influenza virus with other respiratory manifestations (principal); Z20.822 Contact with and (suspected) exposure to COVID-19; E03.9 Hypothyroidism, unspecified; D50.9 Iron deficiency anemia, unspecified
CPT/HCPCS: 87081; 87426; 87804; 87880; 99213; G0463

== ENCOUNTER 2023-12-07 18:33 | Emergency (ER) | payer SELFPAY ==
[2023-12-07 18:58] VITALS: BP 122/66; PULSE 91; RESP 20; TEMP 36.4; O2SAT 95
--- NOTE | 2023-12-07 19:15 | ED.URI ---
HPI - URI/Sore Throat General Chief Complaint: Upper Respiratory Infection Stated Complaint: FLU +, meds aren't working Time Seen by Provider: 12/07/23 19:13 History of Present Illness HPI Narrative: Patient is a 23-year-old female here with flu-like symptoms. Patient states that her symptoms began yesterday. She describes subjective fever, cough, congestion, body aches including pain throughout all of the teeth in her mouth, chills. She tried DayQuil, NyQuil, Advil without relief of symptoms. No known sick contacts. She went into an urgent care this afternoon who diagnosed her with influenza A. She took her 1st dose of Tylenol, Tamiflu around 5:00 p.m. and continues to feel horrible which prompted her to come into the emergency department for evaluation. Related Data Allergies Allergy/AdvReac Type Severity Reaction Status Date / Time almond Allergy Unknown Hives / Verified 12/07/23 15:43 Red Face Review of Systems Review of Systems: All systems reviewed & are unremarkable except as noted in HPI and below PMFSH Past Medical History Medical History Depression Hypothyroid Iron deficiency anemia Surgical History Surgical History History of section Hx of tonsillectomy Family History Family History Father Hypertension Mother Anemia Social History Social History Smoking status: Never smoker Second hand tobacco smoke exposure: No Substance use: never Gender identity (if verbalized by the patient): Female Spiritual care concerns: No Exam Narrative: GENERAL: Well-appearing, well-nourished, and in no acute distress. HEAD: Normocephalic, atraumatic. EYES: PERRLA and EOMI. ENT: Nares clear. Mucous membranes moist. NECK: Supple. CHEST: Clear to auscultation. No respiratory distress. HEART: Regular rate and rhythm. Normal peripheral pulses. ABDOMEN: Soft, nontender, nondistended. EXTREMITIES: Normal range of motion. No edema. SKIN: Warm, dry, no rash. NEURO: No focal deficits. Alert and oriented x3. Course Course Emergency Course: Chart review performed, patient here with flu-like symptoms, was seen at urgent care today, diagnosed with influenza and started on Tamiflu and Zofran. Continues to have symptoms so came into the emergency department. Triage vitals normal including afebrile. Patient seen evaluated, nontoxic appearing. Her triage vitals are normal and she has a documented influenza a positive in our system. Will give dose of ibuprofen. Advised that Tamiflu will not completely resolve her symptoms and she will likely feel poorly for the next 4-5 days while the iris continues to run its course. Advised that Tamiflu does not eliminate influenza, it only shorten the illness duration by approximately 18 hours. Patient is advised to alternate Tylenol and ibuprofen every 3 hours. Will give her primary care information. The results of pertinent diagnostic studies and exam findings were discussed. The patient?s provisional diagnosis and plan of care were discussed with the patient and present family. The patient and/or present family expressed understanding of the diagnosis and plan. The nurse was instructed to provide written instructions and appropriate follow-up information. The patient understands their need and responsibility to obtain additional follow-up as instructed. The risks of medications administered and prescribed were discussed with the patient and family present. Vital Signs Vital signs: Vital Signs Temperature 97.5 F L 12/07/23 18:58 Pulse Rate 91 12/07/23 18:58 Respiratory Rate 20 12/07/23 18:58 Blood Pressure 122/66 12/07/23 18:58 Pulse Oximetry 95 12/07/23 18:58 Oxygen Delivery Room Air 12/07/23 18:58
[2023-12-07] MEDS: IBUPROFEN 600 MG TABLET PO (19:40)
== END 2023-12-07 19:49 | disposition home or self-care (01) ==
PROVIDERS: Emergency Provider Student in an Organized Health Care Education/Training Program
DX: J11.1 Influenza due to unidentified influenza virus with other respiratory manifestations (principal); E03.9 Hypothyroidism, unspecified; D50.9 Iron deficiency anemia, unspecified
CPT/HCPCS: 87081; 87426; 87804; 87880; 99282; A9270

== ENCOUNTER 2024-05-20 10:38 | Emergency (ER) | payer SELFPAY ==
[2024-05-20 10:47] VITALS: BP 131/83; PULSE 80; RESP 18; TEMP 36.6; O2SAT 100
--- NOTE | 2024-05-20 11:34 | ED.EAR ---
HPI - Ear Problem General Chief complaint: Ear Stated complaint: EARS CLOGGED Related Data Allergies Allergy/AdvReac Type Severity Reaction Status Date / Time almond Allergy Unknown Hives / Verified 05/20/24 11:17 Red Face PMFSH Past Medical History Medical History Depression Hypothyroid Iron deficiency anemia Surgical History Surgical History History of section Hx of tonsillectomy Family History Family History Father Hypertension Mother Anemia Social History Social History Smoking status: Never smoker Second hand tobacco smoke exposure: No Substance use: never Gender identity (if verbalized by the patient): Female Spiritual care concerns: No Course Vital Signs Vital signs: Vital Signs Temperature 36.6 C 05/20/24 10:47 Pulse Rate 80 05/20/24 10:47 Respiratory Rate 18 05/20/24 10:47 Blood Pressure 131/83 05/20/24 10:47 Pulse Oximetry 100 05/20/24 10:47 Oxygen Delivery Room Air 05/20/24 10:47 Temperature 36.6 C 05/20/24 10:47 Pulse Rate 80 05/20/24 10:47 Respiratory Rate 18 05/20/24 10:47 Blood Pressure 131/83 05/20/24 10:47 Pulse Oximetry 100 05/20/24 10:47 Oxygen Delivery Room Air 05/20/24 10:47 Medical Decision Making Vital Signs Vital Signs: Vital Signs Temperature 36.6 C 05/20/24 10:47 Pulse Rate 80 05/20/24 10:47 Respiratory Rate 18 05/20/24 10:47 Blood Pressure 131/83 05/20/24 10:47 Pulse Oximetry 100 05/20/24 10:47 Oxygen Delivery Room Air 05/20/24 10:47 Temperature 36.6 C 05/20/24 10:47 Pulse Rate 80 05/20/24 10:47 Respiratory Rate 18 05/20/24 10:47 Blood Pressure 131/83 05/20/24 10:47 Pulse Oximetry 100 05/20/24 10:47 Oxygen Delivery Room Air 05/20/24 10:47 Discharge Plan Discharge Patient Disposition: Left Without Being Sn Triaged Follow-up/Referrals: PHYSICIAN,LAND RECLAMATION SPECIALIST [Primary Care Provider] -
== END 2024-05-20 11:00 | disposition left against medical advice (07) ==
PROVIDERS: Emergency Provider Registered Nurse
DX: H61.23 Impacted cerumen, bilateral (principal)
CPT/HCPCS: 99199

== ENCOUNTER 2024-05-20 16:00 | Emergency (ER) | payer SELFPAY ==
[2024-05-20 16:07] VITALS: BP 126/77; PULSE 80; RESP 16; TEMP 36.7; O2SAT 100
--- NOTE | 2024-05-20 16:12 | ED.EAR ---
HPI - Ear Problem General Chief complaint: Ear Stated complaint: Ears Irritation Time Seen by Provider: 05/20/24 16:15 Source: patient Mode of arrival: ambulatory Limitations: no limitations History of Present Illness HPI Narrative: Keerthi is a 24-year-old female patient presenting to the clinic today with complaints of bilateral ear discomfort. She reports she has had pain and feeling as though there clogged for the past 2-3 weeks. Has tried [id number] ear drops with little success. Thinks that she may have impacted cerumen. Related Data Allergies Allergy/AdvReac Type Severity Reaction Status Date / Time almond Allergy Unknown Hives / Verified 05/20/24 16:25 Red Face Review of Systems Review of Systems: Pertinent positives per HPI. Patient denies any fever, chills, rash, headache, visual changes, dizziness, cough, shortness of breath, chest pain, palpitations, nausea, vomiting, diarrhea, constipation, abdominal pain, or any urinary issues. PMFSH Past Medical History Medical History Depression Hypothyroid Iron deficiency anemia Surgical History Surgical History History of section Hx of tonsillectomy Family History Family History Father Hypertension Mother Anemia Social History Social History Smoking status: Never smoker Second hand tobacco smoke exposure: No Substance use: never Gender identity (if verbalized by the patient): Female Spiritual care concerns: No Comments At the time of my signature, I reviewed and agree with the nursing past medical, surgical, social, and family history. There is no relevant family history pertinent to the patient complaint. Exam Narrative: General: Well-developed, well nourished, in no apparent distress Head: Normocephalic, atraumatic Eyes: Pupils equally round and reactive to light bilaterally, EOM intact, sclera and conjunctive clear, no discharge, lids normal Ears: Bilateral TMs intact, bulging, red, ear canals clear, no drainage, grossly hearing normal. Nose: Nares patent, no discharge, no inflammation, no sinus tenderness. Mouth: Oral pharynx without lesions or masses, good dentition, MMM. Neck: Supple, trachea midline, no enlargement of anterior or posterior cervical nodes, no thyroid masses or goiter palpable. Cardio: Regular rate and rhythm, s1 and s2 normal, no murmur appreciated. Resp: Clear to auscultation bilaterally, no rhonchi, rales, wheezing or rubs Course Course Emergency Course: Portions of this record may have been created with voice recognition software. Level of Care: Express Care Visit Vital Signs Vital signs: Vital Signs Temperature 36.7 C 05/20/24 16:07 Pulse Rate 80 05/20/24 16:07 Respiratory Rate 16 05/20/24 16:07 Blood Pressure 126/77 05/20/24 16:07 Pulse Oximetry 100 05/20/24 16:07 Oxygen Delivery Room Air 05/20/24 16:07 Temperature 36.7 C 05/20/24 16:07 Pulse Rate 80 05/20/24 16:07 Respiratory Rate 16 05/20/24 16:07 Blood Pressure 126/77 05/20/24 16:07 Pulse Oximetry 100 05/20/24 16:07 Oxygen Delivery Room Air 05/20/24 16:07 Vital signs reviewed Medical Decision Making MDM Narrative Medical decision making narrative: At the time of visit patient is resting comfortably on the exam table. Patient appears to be nontoxic. Plan: I suspect patient has bilateral otitis media. Prescription for amoxicillin was sent to pharmacy. Supportive measures were discussed with the patient and they voiced understanding discharge instructions and agrees to treatment plan. Return precautions reviewed Differential Diagnosis Differential Diagnosis: Otitis media, otitis externa, eustachian tube dysfunction, cerumen impaction, upper respiratory infection, serous otitis Vital Signs Vital Signs: Vital Signs Temperature 36.7 C 05/20/24 16:07 Pulse Rate 80 05/20/24 16:07 Respiratory Rate 16 05/20/24 16:07 Blood Pressure 126/77 05/20/24 16:07 Pulse Oximetry 100 05/20/24 16:07 Oxygen Delivery Room Air 05/20/24 16:07 Temperature 36.7 C 05/20/24 16:07 Pulse Rate 80 05/20/24 16:07 Respiratory Rate 16 05/20/24 16:07 Blood Pressure 126/77 05/20/24 16:07 Pulse Oximetry 100 05/20/24 16:07 Oxygen Delivery Room Air 05/20/24 16:07 Discharge Plan Discharge Clinical Impression: Bilateral otitis media Patient Disposition: Home, Self-Care Condition: Stable Instructions: Antibiotic Form, Ear Infection (ED) Additional Instructions: Take any prescribed medications only as directed-amoxicillin Tylenol/motrin as needed for pain May use heating pad to alleviate pain Avoid bottle propping if ear infection in . If you get recurrent ear infections it may be warranted to follow up with ENT. Follow up with your PCP in 3-5 days if symptoms persist. Prescriptions: New amoxicillin 875 mg tablet 875 mg PO Q12H 10 Days Qty: 20 0RF Follow-up/Referrals: PHYSICIAN,QUITLINE COUNSELOR [Primary Care Provider] - Time of Disposition: 16:16 Quality NIHSS Nursing Documentation ED NIHSS nursing documentation: reviewed/agree
== END 2024-05-20 16:25 | disposition home or self-care (01) ==
PROVIDERS: Emergency Provider Nurse Practitioner Family
DX: H66.93 Otitis media, unspecified, bilateral (principal); E03.9 Hypothyroidism, unspecified
CPT/HCPCS: 99213; G0463

== ENCOUNTER 2024-08-04 14:28 | Emergency (ER) | payer SELFPAY ==
[2024-08-04 14:45] VITALS: BP 153/78; PULSE 71; RESP 16; TEMP 36.2; O2SAT 100
--- NOTE | 2024-08-04 15:37 | ED_ITS ---
HPI - General Adult General Chief complaint: Dizziness Stated complaint: Weakness/Dizziness Time Seen by Provider: 08/04/24 15:38 Source: patient, RN notes reviewed and old records reviewed Mode of arrival: ambulatory Limitations: no limitations History of Present Illness HPI narrative: 24-year-old female presents to the [facility] with complaints of feeling dizzy and weak at [employer] just prior to arrival. No loss of consciousness. Onset (ago): hour(s) Related Data Home Medications ?Medication ?Instructions ?Recorded ?Confirmed ?Last Taken ?Type No Home Medications 08/04/24 08/04/24 Unknown History Allergies Allergy/AdvReac Type Severity Reaction Status Date / Time almond Allergy Unknown Hives / Verified 08/04/24 14:57 Red Face Review of Systems Review of Systems: All systems reviewed & are unremarkable except as noted in HPI and below Constitutional: Constitutional: Reports no additional constitutional complaints ENT: Reports system reviewed and no additional complaints, except as documented Cardiovascular: Cardiovascular: Reports no additional cardiovascular complaints, Denies chest pain and Denies dyspnea Respiratory: Respiratory: Reports no additional respiratory complaints, Denies chest congestion, Denies cough and Denies dyspnea Musculoskeletal: Musculoskeletal: Reports no additional musculoskeletal complaints Integumentary/Breasts: Skin/Breast: Reports system reviewed and no additional complaints, except as docu PMFSH Past Medical History Medical History Depression Hypothyroid Iron deficiency anemia Surgical History Surgical History History of section Hx of tonsillectomy Family History Family History Father Hypertension Mother Anemia Social History Social History Smoking status: Never smoker Second hand tobacco smoke exposure: No Substance use: never Gender identity (if verbalized by the patient): Female Spiritual care concerns: No Comments At the time of my signature, I reviewed and agree with the nursing past medical, surgical, social, and family history. There is no relevant family history pertinent to the patient complaint. Exam Const: General: cooperative, healthy appearing, comfortable, no acute distress, well developed, alert and well nourished Nutritional Appearance: well nourished Orientation/consciousness: patient oriented x3 Limitations: no limitations HENMT: Head: normal to inspection Eyes: General: appearance normal, both eyes and all related structures Alignment and Position: alignment normal Neck: Neck: normal visual inspection, full ROM, no lymphadenopathy and no meningeal signs Chest: Chest palpation & inspection: normal inspection of the chest Resp: Effort & Inspection: normal respiratory effort and able to speak in complete sentences Auscultation: clear to auscultation bilaterally, no crackles, no rales, no rhonchi and no wheezes Cardio: Rate: regular rate Skin: General skin exam: normal color and no rashes or lesions noted Neuro: General: patient oriented x3, gait normal, moves all extremities and no meningeal signs Cognition (Neuro): normal cognition Speech: normal speech Gait exam (Neuro): Normal gait present Extrem: General: normal to inspection, full ROM, capillary refill normal and normal gait Psych: Appearance: grossly normal and well kempt Mental Status: mental status grossly normal Speech and movement: Normal speech and movement present and Clear speech present Affect: normal affect Attitude: cooperative Course Course Level of Care: Express Care Visit Vital Signs Vital signs: Vital Signs Temperature 97.2 F L 08/04/24 14:45 Pulse Rate 71 08/04/24 14:45 Respiratory Rate 16 08/04/24 14:45 Blood Pressure 153/78 H 08/04/24 14:45 Pulse Oximetry 100 08/04/24 14:45 Oxygen Delivery Room Air 08/04/24 14:45 Temperature 97.2 F L 08/04/24 14:45 Pulse Rate 71 08/04/24 14:45 Respiratory Rate 16 08/04/24 14:45 Blood Pressure 153/78 H 08/04/24 14:45 Pulse Oximetry 100 08/04/24 14:45 Oxygen Delivery Room Air 08/04/24 14:45 Reviewed Medical Decision Making MDM Narrative Medical decision making narrative: Patient sitting comfortably in exam room. Nontoxic, vitals stable. Patient in no acute distress Patient presents for Discharge instructions reviewed with patient, as well as provided in writing per nursing staff. The instructions also include specific and strict return/GO TO THE ER as well as f/u information. All questions have been answered, and the patient deny any further questions with discharge and discharge plan. Some parts of this dictation were generated by voice recognition software and may contain typographical and/or grammatical inaccuracies. Medical Records Medical records reviewed: Yes I reviewed the external patient's medical records. Vital Signs Vital Signs: Vital Signs Temperature 97.2 F L 08/04/24 14:45 Pulse Rate 71 08/04/24 14:45 Respiratory Rate 16 08/04/24 14:45 Blood Pressure 153/78 H 08/04/24 14:45 Pulse Oximetry 100 08/04/24 14:45 Oxygen Delivery Room Air 08/04/24 14:45 Temperature 97.2 F L 08/04/24 14:45 Pulse Rate 71 08/04/24 14:45 Respiratory Rate 16 08/04/24 14:45 Blood Pressure 153/78 H 08/04/24 14:45 Pulse Oximetry 100 08/04/24 14:45 Oxygen Delivery Room Air 08/04/24 14:45 Reviewed Lab Data Lab results reviewed: Yes I reviewed the patient's lab results. Labs: Reviewed Critical Care Time Critical Care Time Critical Care Time: No Discharge Plan Discharge Patient Language: Vietnamese Prescriptions: No Action No Home Medications Follow-up/Referrals: PHYSICIAN,FITTER/WELDER [Primary Care Provider] -
== END 2024-08-04 16:00 | disposition left against medical advice (07) ==
DX: Z53.21 Procedure and treatment not carried out due to patient leaving prior to being seen by health care provider (principal)
CPT/HCPCS: 99199

== ENCOUNTER 2024-08-04 17:03 | Emergency (ER) | payer SELFPAY ==
--- NOTE | ~2024-08-04 | XR_ITS ---
CHEST RADIOGRAPH, PA AND LATERAL CLINICAL HISTORY: dizziness . COMPARISON: None available TECHNIQUE: PA and lateral views of the chest. FINDINGS The cardiomediastinal silhouette is unremarkable. The lungs are clear. Visualized osseous structures and soft tissues are unremarkable. IMPRESSION: No focal infiltrate or effusion. Reviewed, dictated and finalized at location A. LE AND GLASS INSPECTOR
[2024-08-04 17:16] VITALS: BP 170/94; PULSE 70; RESP 18; TEMP 36.3; O2SAT 100
--- NOTE | 2024-08-04 17:53 | ED.UPPEXIN ---
HPI - Extremity Injury (Upper) General Chief Complaint: Extremity Injury, Upper <Clementina Mccall PA-C - Last Filed: 08/06/24 19:42> Stated Complaint: dizzy spells, left arm pain <Clementina Mccall PA-C - Last Filed: 08/06/24 19:42> Time Seen by Provider: 08/04/24 17:53 <Clementina Mccall PA-C - Last Filed: 08/06/24 19:42> Focused HPI: This is a 24 year old female that presents to the ER for lightheadedness. Reports she was shopping today when it started. Reports she went to urgent care and left before being seen. Denies chest pain or shortness of breath. Reports palpitations and left shoulder pain. GENERAL: Well-appearing, well-nourished, and in no acute distress. HEAD: Normocephalic, atraumatic. CHEST: Clear to auscultation. ?No respiratory distress. HEART: Regular rate and rhythm.? NEURO: ?Alert and oriented x3. Patient screened in triage and initial orders placed.? ?Additional care and disposition to be based upon?diagnostic testing and treatment. <Clementina Mccall PA-C - Last Filed: 08/06/24 19:42> History of Present Illness HPI narrative: I agree with the assessment and documentation by Clementina Mccall PA-C. <Nani Zhang, HARITHA - Last Filed: 08/04/24 23:38> Related Data Home Medications: Home Medications ?Medication ?Instructions ?Recorded ?Confirmed ?Last Taken ?Type No Home Medications 08/04/24 08/04/24 Unknown History <Clementina Mccall PA-C - Last Filed: 08/06/24 19:42> Allergies/Adverse Reactions: Allergies Allergy/AdvReac Type Severity Reaction Status Date / Time almond Allergy Unknown Hives / Verified 08/04/24 17:20 Red Face <Clementina Mccall PA-C - Last Filed: 08/06/24 19:42> Review of Systems Review of Systems: All systems reviewed & are unremarkable except as noted in HPI and below <Nani Zhang APRN - Last Filed: 08/04/24 23:38> PMFSH Past Medical History Medical History: Medical History Depression Hypothyroid Iron deficiency anemia <Clementina Mccall PA-C - Last Filed: 08/06/24 19:42> Surgical History Surgical History: Surgical History History of section Hx of tonsillectomy <Clementina Mccall PA-C - Last Filed: 08/06/24 19:42> Family History Family History: Family History Father Hypertension Mother Anemia <JAVAD Arredondo Last Filed: 08/06/24 19:42> Social History Social History: Social History Smoking status: Never smoker Second hand tobacco smoke exposure: No Substance use: never Gender identity (if verbalized by the patient): Female Spiritual care concerns: No <Clementina Mccall PA-C - Last Filed: 08/06/24 19:42> Exam Narrative: GENERAL: Well appearing, well-nourished, non-toxic, in no acute distress. HEAD: Normocephalic, atraumatic. NECK: Supple. No adenopathy, no masses. RESPIRATORY: Airway patent, respirations nonlabored. Clear to auscultation bilaterally, no rales, rhonchi, wheezing. CARDIOVASCULAR: Regular rate and rhythm without murmurs, rubs, or gallops. Peripheral pulses 2+ and equal bilaterally. ABDOMINAL: Soft, nontender, nondistended, no hepatosplenomegaly. Normoactive BS. MUSCULOSKELETAL: Moves all extremities. Strength/ROM intact without gross deformities. SKIN: Warm, dry, normal color. No rashes. NEURO: A&O X3. Speech clear. Cranial nerves II-XII grossly intact. Steady gait. No ataxic movements. PSYCHIATRIC: Appropriate mood and affect. Normal interaction. <Nani Zhang APRN - Last Filed: 08/04/24 23:38> Course Vital Signs Vital signs: Vital Signs Temperature 97.4 F L 08/04/24 17:16 Pulse Rate 70 08/04/24 17:16 Respiratory Rate 18 08/04/24 17:16 Blood Pressure 170/94 H 08/04/24 17:16 Pulse Oximetry 100 08/04/24 17:16 Oxygen Delivery Room Air 08/04/24 17:16 Temperature 97.8 F 08/04/24 23:45 Pulse Rate 78 08/04/24 23:45 Respiratory Rate 16 08/04/24 23:45 Blood Pressure 136/76 08/04/24 23:45 Pulse Oximetry 98 08/04/24 23:45 Oxygen Delivery Room Air 08/04/24 17:16 <Clementina Mccall PA-C - Last Filed: 08/06/24 19:42> Vital Signs Temperature 97.4 F L 08/04/24 17:16 Pulse Rate 70 08/04/24 17:16 Respiratory Rate 18 08/04/24 17:16 Blood Pressure 170/94 H 08/04/24 17:16 Pulse Oximetry 100 08/04/24 17:16 Oxygen Delivery Room Air 08/04/24 17:16 Temperature 97.8 F 08/04/24 23:45 Pulse Rate 78 08/04/24 23:45 Respiratory Rate 16 08/04/24 23:45 Blood Pressure 136/76 08/04/24 23:45 Pulse Oximetry 98 08/04/24 23:45 Oxygen Delivery Room Air 08/04/24 17:16 <Nani Zhang, PERSONAL SECRETARY - Last Filed: 08/04/24 23:38> MDM - Extremity Injury (Upper) MDM Narrative Medical decision making narrative: Pt is a 24 year old female that presents to the ER for lightheadedness. Reports she was shopping today when it started. Reports she went to urgent care and left before being seen. Denies chest pain or shortness of breath. Reports palpitations and left shoulder pain. Labs Ordered: CBC, CMP, TSH, troponin, COVID/flu/RSV swab, PTT, INR Imaging Ordered: Chest x-ray Medications Ordered: None necessary Results: Patient's chest x-ray indicates The cardiomediastinal silhouette is unremarkable. The lungs are clear. Visualized osseous structures and soft tissues are unremarkable. Diagnosis: Hypothyroidism, mild dehydration Patient Education/Shared MDM: Results shared with patient. She endorses understanding of blood work results. Patient strongly advised to maintain hydration status upon discharge and follow-up with a PCP ADRIAN. She will be discharged home with no new prescriptions, as she need to follow-up with a PCP to start her on thyroid medication. Strict return precautions provided. Patient verbalized understanding is in agreement with plan. Vital signs stable at time of discharge. All questions answered. <Nani Zhang APRN - Last Filed: 08/04/24 23:38> Differential Diagnosis Differential diagnosis: Likely other (hypothyroidism, dehydration, COVID/flu/RSV) <Nani Zhang APRN - Last Filed: 08/04/24 23:38> Lab Data Attestation: I reviewed the patient's lab results. <Nani Zhang APRN - Last Filed: 08/04/24 23:38> Result diagrams: 08/04/24 21:03 08/04/24 21:03 <Clementina Mccall PA-C - Last Filed: 08/06/24 19:42> Labs: Lab Results 08/04/24 Range/Units 21:03 WBC 10.9 H (4.5-10.0) K/mm3 RBC 4.65 (4.2-5.4) M/mm3 Hgb 9.6 L D (12.0-15.0) g/dL Hct 32.6 L (37.0-47.0) % MCV 70.1 L (80-100) fl MCH 20.6 L (26-34) pg MCHC 29.4 L (32-36) g/dl RDW 19.4 H (11.5-14.5) % Plt Count 321 D (150-375) k/mm3 MPV 11.3 H (7.4-10.4) fl Immature Gran % (Auto) 0.3 (0-0.5) % Neut % (Auto) 62.7 (45.5-73.1) % Lymph % (Auto) 28.7 (18.3-44.2) % [place] % (Auto) 6.0 (2.6-8.5) % Eos % (Auto) 1.9 (0-4.4) % Baso % (Auto) 0.4 (0.2-1.2) % Lymph # (Auto) 3.13 (0.9-3.2) K/mm3 [place] # (Auto) 0.7 H (0.1-0.6) K/mm3 Eos # (Auto) 0.2 (0-0.3) K/mm3 Baso # (Auto) 0.0 (0.0-0.1) K/mm3 Abs Immat Gran (auto) 0.03 (0.00-0.031) K/mm3 Absolute Neuts (auto) 6.8 H (1.3-6.7) K/mm3 Absolute Nucleated RBC 0.000 (0.0-0.012) K/mm3 Nucleated RBC % 0.0 (0.0-0.2) % Platelet Estimate Adequate (Adequate) % Immature Plt Fraction 6.7 (0.9-11.2) % Hypochromasia 1+ Anisocytosis 2+ Microcytosis 1+ (NORMAL) Schistocytes None seen PT 13.9 (11.1-14.7) Seconds INR 1.0 APTT 30.0 (22.3-36.8) Seconds Sodium 138 (137-145) mmol/L Potassium 3.8 (3.4-5.0) mmol/L Chloride 101 (98-107) mmol/L Carbon Dioxide 25 (22-30) mmol/L Anion Gap 12 (4-12) mmol/L BUN 8 (7-17) mg/dL Creatinine 0.51 L (0.7-1.0) mg/dL Estim Creat Clear Calc 182 ml/min Estimated GFR > 60 (59 - ) Glucose 88 (65-110) mg/dL Calcium 9.3 (8.4-10.2) mg/dL Total Bilirubin 0.9 (0.2-1.3) mg/dL AST 36 (14-36) U/L ALT 52 H (6-35) U/L Alkaline Phosphatase 87 (38-126) U/L Troponin I < 0.012 (0.000-0.034) ng/mL Total Protein 8.0 (6.3-8.2) g/dL Albumin 4.7 (3.5-5.1) g/dL Lipase 58 (23-300) U/L TSH (Reflex) 7.350 H (0.465-4.68) uIU/mL Free T4 0.97 (0.78-2.19) ng/dL Total T3 1.48 (0.97-1.69) NG/ML Influenza A (RT-PCR) Negative (Negative) Influenza B (RT-PCR) Negative (Negative) RSV (RT-PCR) Negative (Negative) SARS-CoV-2 RNA (RT-PCR) Negative (Negative) <Clementina Mccall PA-C - Last Filed: 08/06/24 19:42> Lab Results 08/04/24 Range/Units 21:03 WBC 10.9 H (4.5-10.0) K/mm3 RBC 4.65 (4.2-5.4) M/mm3 Hgb 9.6 L D (12.0-15.0) g/dL Hct 32.6 L (37.0-47.0) % MCV 70.1 L (80-100) fl MCH 20.6 L (26-34) pg MCHC 29.4 L (32-36) g/dl RDW 19.4 H (11.5-14.5) % Plt Count 321 D (150-375) k/mm3 MPV 11.3 H (7.4-10.4) fl Immature Gran % (Auto) 0.3 (0-0.5) % Neut % (Auto) 62.7 (45.5-73.1) % Lymph % (Auto) 28.7 (18.3-44.2) % [place] % (Auto) 6.0 (2.6-8.5) % Eos % (Auto) 1.9 (0-4.4) % Baso % (Auto) 0.4 (0.2-1.2) % Lymph # (Auto) 3.13 (0.9-3.2) K/mm3 [place] # (Auto) 0.7 H (0.1-0.6) K/mm3 Eos # (Auto) 0.2 (0-0.3) K/mm3 Baso # (Auto) 0.0 (0.0-0.1) K/mm3 Abs Immat Gran (auto) 0.03 (0.00-0.031) K/mm3 Absolute Neuts (auto) 6.8 H (1.3-6.7) K/mm3 Absolute Nucleated RBC 0.000 (0.0-0.012) K/mm3 Nucleated RBC % 0.0 (0.0-0.2) % Platelet Estimate Adequate (Adequate) % Immature Plt Fraction 6.7 (0.9-11.2) % Hypochromasia 1+ Anisocytosis 2+ Microcytosis 1+ (NORMAL) Schistocytes None seen PT 13.9 (11.1-14.7) Seconds INR 1.0 APTT 30.0 (22.3-36.8) Seconds Sodium 138 (137-145) mmol/L Potassium 3.8 (3.4-5.0) mmol/L Chloride 101 (98-107) mmol/L Carbon Dioxide 25 (22-30) mmol/L Anion Gap 12 (4-12) mmol/L BUN 8 (7-17) mg/dL Creatinine 0.51 L (0.7-1.0) mg/dL Estim Creat Clear Calc 182 ml/min Estimated GFR > 60 (59 - ) Glucose 88 (65-110) mg/dL Calcium 9.3 (8.4-10.2) mg/dL Total Bilirubin 0.9 (0.2-1.3) mg/dL AST 36 (14-36) U/L ALT 52 H (6-35) U/L Alkaline Phosphatase 87 (38-126) U/L Troponin I < 0.012 (0.000-0.034) ng/mL Total Protein 8.0 (6.3-8.2) g/dL Albumin 4.7 (3.5-5.1) g/dL Lipase 58 (23-300) U/L TSH (Reflex) 7.350 H (0.465-4.68) uIU/mL Free T4 0.97 (0.78-2.19) ng/dL Total T3 1.48 (0.97-1.69) NG/ML Influenza A (RT-PCR) Negative (Negative) Influenza B (RT-PCR) Negative (Negative) RSV (RT-PCR) Negative (Negative) SARS-CoV-2 RNA (RT-PCR) Negative (Negative) <Nani Zhang APRN - Last Filed: 08/04/24 23:38> Imaging Data Attestation: I personally reviewed and interpreted this imaging study as follows: <Nani Zhang APRN - Last Filed: 08/04/24 23:38> Radiologist's impression: Impressions Chest X-Ray 08/04/24 18:52 IMPRESSION: No focal infiltrate or effusion. <Nani Zhang APRN - Last Filed: 08/04/24 23:38> Critical Care Time Critical Care Time Critical Care Time: No <Clementina Mccall PA-C - Last Filed: 08/06/24 19:42> Discharge Plan Discharge Clinical Impression: Mild dehydration Hypothyroidism Qualifiers: Hypothyroidism type: unspecified Qualified Code(s): E03.9 - Hypothyroidism, unspecified <Clemenitna Mccall PA-C - Last Filed: 08/06/24 19:42> Patient Disposition: Home, Self-Care <Clementina Mccall PA-C - Last Filed: 08/06/24 19:42> Condition: Stable <Clementina Mccall PA-C - Last Filed: 08/06/24 19:42> Instructions: Antibiotic Form, Hypothyroidism (ED) <Clementina Mccall PA-C - Last Filed: 08/06/24 19:42> Additional Instructions: Please return to the ER with an worsening symptoms. Follow-up with primary care provider as soon as possible for an ER follow-up visit. <Clementina Mccall PA-C - Last Filed: 08/06/24 19:42> Patient Language: Citizen Of [place] <Clementina Mccall PA-C - Last Filed: 08/06/24 19:42> Prescriptions: No Action No Home Medications <Clementina Mccall PA-C - Last Filed: 08/06/24 19:42> Follow-up/Referrals: Jose Martin Willis MD [Physician] - (primary care provider) PHYSICIAN,UNIX ANALYST [Primary Care Provider] - <Clementina Mccall PA-C - Last Filed: 08/06/24 19:42> Time of Disposition: 23:38 <Clementina Mcacll PA-C - Last Filed: 08/06/24 19:42> 23:38 <Nani Zhang APRN - Last Filed: 08/04/24 23:38>
--- NOTE | 2024-08-04 17:54 | ECG_ITS ---
Test Date: 2024-08-04 20:56:59 Measurements Intervals [place] Rate: 61 P: 27 [place]: 169 QRS: 30 QRSD: 106 T: 1 QT: 385 QTc: 390 Interpretive Statements SINUS RHYTHM NONSPECIFIC ST-T WAVE ABNORMALITY- INFERIOR LEADS BASELINE ARTIFACT- I, II, III, AVR, V6 BORDERLINE ECG No previous ECG available for comparison Electronically Signed On 08-05-2024 10:24:33 PROJECT EXECUTIVE by Frank Souza D.O.
--- NOTE | 2024-08-04 20:46 | PC.NURSE ---
Patient states she had an episode of feeling lightheaded around 1300 today that lasted around 1 minute, but has not had any lightheadedness since.
[2024-08-04] MEDS: SODIUM CHLORIDE 0.9% IV 1,000 ML 999 ML IV CONT (21:03)
[2024-08-04 21:16] LABS: Basophils Percent Auto 0.4 % (0.2-1.2); Eosinophils Absolute Auto 0.2 K/mm3 (0-0.3); Eosinophils Percent Auto 1.9 % (0-4.4); Hematocrit 32.6 % (37.0-47.0); Hemoglobin 9.6 g/dL (12.0-15.0); Immature Granulocyte Absolute 0.03 K/mm3 (0.00-0.031); Immature Granulocyte Percent A 0.3 % (0-0.5); Immature Platelet Fraction Pct 6.7 % (0.9-11.2); Lymphocytes Absolute Auto 3.13 K/mm3 (0.9-3.2); Lymphocytes Percent Auto 28.7 % (18.3-44.2); Mean Corpuscular HGB Conc 29.4 g/dl (32-36); Mean Corpuscular Hemoglobin 20.6 pg (26-34); Mean Corpuscular Volume 70.1 fl (80-100); Mean Platelet Volume 11.3 fl (7.4-10.4); Monocytes Absolute Auto 0.7 K/mm3 (0.1-0.6); Neutrophils Absolute Auto 6.8 K/mm3 (1.3-6.7); Neutrophils Percent Auto 62.7 % (45.5-73.1); Platelet Count Result 321 k/mm3 (150-375); Red Blood Count 4.65 M/mm3 (4.2-5.4); Red Cell Distribution Width 19.4 % (11.5-14.5); White Blood Count 10.9 K/mm3 (4.5-10.0)
[2024-08-04 21:27] LABS: Prothrombin Time 13.9 Seconds (11.1-14.7)
[2024-08-04 21:30] LABS: Alanine Aminotransferase 52 U/L (6-35); Albumin Level 4.7 g/dL (3.5-5.1); Alkaline Phosphatase 87 U/L (38-126); Anion Gap 12 mmol/L (4-12); Aspartate Amino Transferase 36 U/L (14-36); Bilirubin,Total 0.9 mg/dL (0.2-1.3); Blood Urea Nitrogen 8 mg/dL (7-17); Calcium 9.3 mg/dL (8.4-10.2); Carbon Dioxide 25 mmol/L (22-30); Chloride 101 mmol/L (98-107); Estimated CRCL calculation 182 ml/min; Estimated Glomerular Filt Rate > 60; Glucose 88 mg/dL (65-110); Lipase 58 U/L (23-300); Potassium 3.8 mmol/L (3.4-5.0); Sodium 138 mmol/L (137-145)
[2024-08-04 21:41] LABS: Troponin I < 0.012 ng/mL (0.000-0.034)
[2024-08-04 21:44] LABS: Hypochromasia 1+; Microcytosis 1+ (NORMAL); Platelet Estimate Adequate (Adequate)
[2024-08-04 21:45] LABS: Anisocytosis 2+; Schistocytes None Seen
[2024-08-04 22:01] LABS: Influenza A QL RT-PCR Negative (Negative); Influenza B QL RT-PCR Negative (Negative); RSV RNA, RT-PCR Negative (Negative); SARS-CoV-2 RNA PCR Negative (Negative)
[2024-08-04 23:27] LABS: Free T4 Free Thyroxine Reflex 0.97 ng/dL (0.78-2.19)
[2024-08-04 23:45] VITALS: BP 136/76; PULSE 78; RESP 16; TEMP 36.6; O2SAT 98
[2024-08-05 00:17] LABS: Total Triiodothyronine (T3) 1.48 NG/ML (0.97-1.69)
== END 2024-08-04 23:47 | disposition home or self-care (01) ==
PROVIDERS: Physician Assistant; Emergency Provider Registered Nurse
DX: E86.0 Dehydration (principal); E03.9 Hypothyroidism, unspecified; Z20.822 Contact with and (suspected) exposure to COVID-19; F32.A Depression, unspecified; D64.9 Anemia, unspecified
CPT/HCPCS: 36415; 71046; 80053; 83690; 84439; 84443; 84480; 84484; 85025; 85055; 85610; 85730; 87637; 93005; 96360; 99284; J7030

== ENCOUNTER 2024-12-17 08:00 | Outpatient (CLI) | payer OTHER, SELFPAY ==
--- NOTE | ~2024-12-17 | US_ITS ---
EXAMINATION: US thyroid DATE: 12/17/2024 09:37 INDICATION: Ly's thyroiditis TECHNIQUE: Multiple ultrasound images of the thyroid were obtained. COMPARISON: 05/05/2013 FINDINGS: The right thyroid lobe measures 4.6 x 1.8 x 1.8 cm. Within the upper pole of the right lobe of the thyroid gland is a 9.8 x 8.1 x 9.3 mm nodule: Composition - spongiform Echogenicity - hypoechoic (2) Shape - wider than tall Margin - smooth Echogenic foci - none. = TR2 not suspicious. Within the lower pole of the right lobe of the thyroid gland is a 8.5 x 8.8 x 8.7 mm nodule: Composition - spongiform Echogenicity -hyperechoic and isoechoic (1) Shape - wider than tall Margin -ill-defined Echogenic foci -macrocalcifications (1) = TR2 not suspicious. The left thyroid lobe measures 5.5 x 1.5 x 1.3 cm. The isthmus measures 0.4cm in anterior to posterior dimension. Within the isthmus of the thyroid gland, to the left of midline is a 9.0 x 3.9 x 7.9 mm nodule: Composition - spongiform Echogenicity -isoechoic and hyperechoic (1) Shape - wider than tall Margin - smooth Echogenic foci - none. = TR 1, benign. There is otherwise normal echotexture and echogenicity throughout the remainder of the thyroid gland. No additional discrete nodules identified. Vascular flow has normalized. IMPRESSION: TR2 nodules within the right lobe of the thyroid gland . These nodules are not sonographically suspicious and no FNA or follow-up is recommended. TR 1 nodule within the isthmus of the thyroid gland, to the left of midline. This nodule is sonograph ically benign for which no FNA or follow-up is recommended. While follow-up is not recommended (as per TIRADs criteria) it may be performed, at the discretion of the referring clinician. Reviewed, dictated and finalized at location A. IMPRESSION: TR2 nodules within the right lobe of the thyroid gland . These nodules are not sonographically suspicious and no FNA or follow-up is rec ommended. TR 1 nodule within the isthmus of the thyroid gland, to the left of midline. Th is nodule is sonographically benign for which no FNA or follow-up is recommende d. While follow-up is not recommended (as per TIRADs criteria) it may be performed , at the discretion of the referring clinician.
== END 2024-12-17 08:01 | disposition home or self-care (01) ==
PROVIDERS: PCP Emergency Medicine; Visit Provider Emergency Medicine
DX: E04.2 Nontoxic multinodular goiter (principal); E06.3 Autoimmune thyroiditis
CPT/HCPCS: 76536